=== PATIENT | male | born 1950 | race Caucasian/White ===

== ENCOUNTER 2017-03-10 15:05 | Outpatient (CLI) | payer MEDICARE, OTHER ==
--- NOTE | 2017-03-11 12:36 | XRAY Report ---
CHEST, PA AND LATERAL: 03/10/2017 CLINICAL HISTORY: Emphysema with acute exacerbation. FINDINGS: Bony thorax demonstrates mild anterior spurring in the thoracic spine. Minimal anterior w edging is noted in the mid thoracic spine. Normal cardiac size is seen. Mediastinum is not widened. Pulmonary parenchyma demonstrates an equivocal finding in regard to a 2.5 to 3.0 cm right infrahila r mass that was not noted on preceding exam. Recommend contrast-enhanced chest CT for further evalua tion. Some limited peribronchial thickening is noted in the lower lobes, not significantly changed. Findings most likely reflect a mild chronic bronchitis. IMPRESSION: 1. EQUIVOCAL FINDING IS NOTED IN REGARD TO A 2.5 TO 3.0 CM RIGHT INFRAHILAR MASS. THIS WAS NOT DEFI NITELY SEEN ON 11/07/2015. RECOMMEND A CONTRAST-ENHANCED CT EXAM OF THE CHEST FOR FURTHER EVALUATION . 2. SOME LIMITED PERIBRONCHIAL THICKENING IS SEEN IN THE LOWER LOBES, UNCHANGED. FINDINGS ARE RELATE D TO MILD CHRONIC BRONCHITIS. JOB #: [id number] EXT JOB #:[id number]
== END 2017-03-10 15:06 | disposition home or self-care (01) ==
LOC: DI.N 15:05
PROVIDERS: ATTEND Physician Assistant
DX: J44.1 Chronic obstructive pulmonary disease with (acute) exacerbation (principal)
CPT/HCPCS: 71020

== ENCOUNTER 2017-03-14 15:09 | Outpatient (CLI) | payer MEDICARE ==
[2017-03-14 16:28] LABS: ALBUMIN/GLOBULIN RATIO 1.2 (1.0-2.2); BILIRUBIN,TOTAL 0.5 mg/dL (0.2-1.0); CALCIUM 9.1 mg/dL (8.5-10.3); CREATININE 1.5 mg/dL (0.6-1.2); POTASSIUM 4.8 mmol/L (3.5-5.0); TOTAL PROTEIN 8.2 g/dL (6.7-8.2)
== END 2017-03-14 15:10 | disposition home or self-care (01) ==
LOC: LAB 15:09
PROVIDERS: ATTEND Physician Assistant
DX: R22.2 Localized swelling, mass and lump, trunk (principal)
CPT/HCPCS: 36415; 80053

== ENCOUNTER 2017-03-15 11:59 | Outpatient (CLI) | payer MEDICARE ==
[2017-03-15] MEDS ORDERED: IOPAMIDOL-300 100 ML VIAL IVP ONE (12:37)
--- NOTE | 2017-03-15 13:09 | CT Report ---
CT PULMONARY ANGIOGRAM: 03/15/2017 CLINICAL INDICATION: COPD exacerbation, and possible lung mass, smoking history. COMPARISON: Chest x-ray 03/10/2017. TECHNIQUE: Axial CT images of the chest were obtained with 80 mL Isovue-300 intravenously. Sagittal and coronal 3D reconstructions were performed. In accordance with CT protocol optimization, one or more of the following dose reduction techniques w ere utilized for this exam: automated exposure control, adjustment of mA and/or KV based on patient size, or use of iterative reconstructive technique. FINDINGS: The heart and great vessels demonstrate atherosclerotic calcifications. No hilar or media stinal lymphadenopathy is present. Changes of old granulomatous disease are present, as well as exte nsive emphysema and scattered atelectasis. No suspicious pulmonary nodule or mass lesion is apprecia nafisa. No effusion or pneumothorax is present. Limited evaluation of upper abdominal structures demon strates normal adrenal glands. Osseous structures demonstrate degenerative changes. IMPRESSION: EXTENSIVE EMPHYSEMA WITH PATCHY ATELECTASIS. NO EVIDENCE OF PULMONARY EMBOLUS. NO SUSP ICIOUS PULMONARY NODULE OR MASS LESION. JOB #: [id number] EXT JOB #:[id number]
== END 2017-03-15 12:00 | disposition home or self-care (01) ==
LOC: DI 11:59
PROVIDERS: ATTEND Physician Assistant
DX: J43.9 Emphysema, unspecified (principal); J98.11 Atelectasis
CPT/HCPCS: 71275; Q9967

== ENCOUNTER 2017-06-17 11:06 | Outpatient (CLI) | payer MEDICARE | END 2017-06-17 11:07 | disposition E | LOC: EMS 11:06 | PROVIDERS: ATTEND Surgery ==